=== PATIENT | female | born 1955 | race Caucasian/White ===

== ENCOUNTER → 2017-03-10 | Outpatient (CLI) | payer OTHER | LOC: FIMAGING 12:00 | PROVIDERS: ATTEND Obstetrics & Gynecology Gynecology | DX: Z12.31 Encounter for screening mammogram for malignant neoplasm of breast (principal) | CPT/HCPCS: G0202 ==

== ENCOUNTER 2017-09-29 12:42 | Emergency (ER) | payer OTHER ==
[2017-09-29 13:04] VITALS: BP 134/74; PULSE 75; RESP 16; TEMP 98.2; O2SAT 96
== END 2017-09-29 14:56 | disposition left against medical advice (07) ==
DX: Z53.21 Procedure and treatment not carried out due to patient leaving prior to being seen by health care provider (principal)

== ENCOUNTER → 2018-03-08 | Outpatient (CLI) | payer OTHER | LOC: FIMAGING 15:04 | PROVIDERS: ATTEND Obstetrics & Gynecology Gynecology | DX: Z12.31 Encounter for screening mammogram for malignant neoplasm of breast (principal) ==

== ENCOUNTER → 2019-03-22 | Outpatient (CLI) | payer OTHER | LOC: FIMAGING 15:09 ==